=== PATIENT | male | born 1980 | race Caucasian/White ===

== ENCOUNTER 2020-01-22 20:34 | Inpatient (IN) | payer SELFPAY ==
--- NOTE | 2020-01-22 21:35 | PDOC ---
History of Present Illness - General Chief Complaint: Seizure Stated Complaint: SEIZURE - History of Present Illness Initial Comments: 01/22/20 21:28 39yo male with no reported PMH BIBEMS after a witnessed seizure at work complaining of posterior headache, chest pain radiating to the back and arms, nausea, lightheadedness, and SOB. Patient states he lost consciousness at work four years ago and he was taken to the [facility] ER, but he doesn't know what happened there or what he was diagnosed with. He states he was at work when he suddenly lost consciousness. He woke up on the floor with blood on his mask. Since then, he has had pain at the back of his head, stabbing substernal chest pain radiating to the back and to both arms, nausea, lightheadedness. Denies vomiting. Not on blood thinners. Patient states he was not eating or drinking much while at work. He reports occasional alcohol use, last drink one week prior. A co-worker was contacted. He states that he heard pans crash on the floor, so he went over and saw the patient having total-body convulsions on the floor for 2-3 minutes. Afterwards the patient was confused, looked dazed, and was not making good eye contact. [facility] ER was contacted, and according to a physician there, the patient was admitted with a story more concerning for syncope than seizure, and there was no outpatient follow up. PMH/PSH: as above Meds/Allergies: none ROS GENERAL/CONSTITUTIONAL: No fever or chills. HEAD, EYES, EARS, NOSE AND THROAT: No change in vision. No ear pain or discharge. No sore throat. CARDIOVASCULAR: chest pain and shortness of breath RESPIRATORY: No cough, wheezing, or hemoptysis. GASTROINTESTINAL: nausea, no vomiting, diarrhea or constipation. GENITOURINARY: No dysuria, frequency, or change in urination. MUSCULOSKELETAL: back pain. no extremity pain SKIN: No rash NEUROLOGIC: headache and lightheadedness ENDOCRINE: No increased thirst. No abnormal weight change HEMATOLOGIC/LYMPHATIC: No anemia, easy bleeding, or history of blood clots. ALLERGIC/IMMUNOLOGIC: No hives or skin allergy. PE GENERAL: Awake, alert, and fully oriented, in no acute distress, tremulous HEAD: No signs of trauma, normocephalic, atraumatic EYES: PERRLA, EOMI, sclera anicteric, conjunctiva clear ENT: Auricles normal inspection, hearing grossly normal, nares patent, oropharynx clear without exudates. Moist mucosa. small laceration on left lateral tongue NECK: Normal ROM, supple, no lymphadenopathy, JVD, or masses LUNGS: No distress, speaks full sentences, clear to auscultation bilaterally HEART: Regular tachycardia, normal S1 and S2, no murmurs, rubs or gallops, peripheral pulses normal and equal bilaterally. ABDOMEN: Soft, nontender, normoactive bowel sounds. No guarding, no rebound. No masses EXTREMITIES : Normal inspection, Normal range of motion, no edema. No clubbing or cyanosis. NEUROLOGICAL: Cranial nerves II through XII grossly intact. Normal speech, no f ocal sensorimotor deficits. tongue fasciculations and hand tremors SKIN: Warm, Dry, normal turgor, no rashes or lesions noted Vital Signs Temp Pulse Resp BP Pulse Ox 99.5 F 107 H 18 125/85 99 01/22/20 20:38 01/22/20 20:38 01/22/20 20:38 01/22/20 20:38 01/22/20 20:38 BP R arm: 125/85 BP L arm: 147/92 MDM: 39yo male with remote history of seizure vs. syncope with no subsequent outpatient follow up presents after a witness seizure at work. Now complaining of posterior headache and stabbing chest pain radiating to the back. He states he awoke from the incident with these symptoms, but sequence of events and causality could be in the other direction. Differential includes seizure, syncope, ACS, aortic dissection, PE, ICH. -EKG -CT head and c-spine w/o contrast -CT C/A/P with contrast -CBC, CMP, coags, cardiac enzymes, lipase, TSH, mg, phos, prolactin 01/22/20 22:[address] Naik consulted -- recommended loading with Keppra 1000mg, continuing with Keppra 1000mg BID, and getting an MRI and EMG tomorrow. 01/22/20 22:54 EKG: Sinus tachycardia, rate 106, normal axis and intervals, no ischemic changes CT head/s-spine CT C/A/P Labs: CBC: 105 platelets, neutrophil 89.3%, lymphocytes 4.3% CMP: Na 132, K 3.0, Cl 96, BUN 3.8, total bili 1.2, AST 100 Normal cardiac enzymes, TSH -given 40meq KCl IV 01/23/20 00:24 Signed out to night team Past History - Medical History Allergies/Adverse Reactions: Allergies Allergy/AdvReac Type Severity Reaction Status Date / Time No Known Allergies Allergy Verified 08/09/19 14:00 Home Medications: Ambulatory Orders Fluticasone Propionate [Flonase Allergy Relief] 2 sprays NS DAILY #1 bottle 08/09/19 COPD: No - Psycho-Social/Smoking History Smoking History: Unknown if ever smoked - Substance Abuse Hx (Audit-C & DAST Scrn) How often the patient has a drink containing alcohol: Monthly or less Score: In Men: 4 or > Positive; In Women: 3 or > Positive: 1 Screen Result (Pos requires Nsg. Audit-10AR): Negative *Physical Exam - Vital Signs Last Vital Signs Temp Pulse Resp BP Pulse Ox 99.5 F 107 H 18 125/85 99 01/22/20 20:38 01/22/20 20:38 01/22/20 20:38 01/22/20 20:38 01/22/20 20:38 ED Treatment Course - LABORATORY CBC & Chemistry Diagram: 01/22/20 21:15 01/22/20 21:15 Discharge - Discharge Information Problems reviewed: Yes Clinical Impression/Diagnosis: Syncope, Seizure-like activity - Follow up/Referral - Patient Discharge Instructions - Post Discharge Activity
[2020-01-22 21:44] LABS: BASO % 0.3 % (0-2.0); HEMATOCRIT 39.9 % (35.4-49); HEMOGLOBIN 13.9 GM/dL (11.7-16.9); LYMPH % 4.3 % (8-40); MCH 33.4 pg (25.7-33.7); MCHC 34.8 g/dl (32.0-35.9); MEAN CELL VOLUME 95.9 fl (80-96); MEAN PLT VOLUME 9.6 fl (7.5-11.1); MONO % 6.1 % (3.8-10.2); NEUT % 89.3 % (42.8-82.8); PLATELET COUNT 105 K/MM3 (134-434); RBC 4.16 M/mm3 (4.00-5.60); RDW 13.8 % (11.9-15.9); WHITE BLOOD COUNT 6.3 K/mm3 (4.0-10.0)
[2020-01-22 21:52] LABS: INR 1.06 (0.83-1.09); PROTHROMBIN TIME (PATIENT) 12.5 SEC (9.7-13.0)
[2020-01-22 21:54] LABS: ACTIVATED PTT 27.4 SECONDS (25.2-36.5)
[2020-01-22 22:20] LABS: ALBUMIN 3.9 g/dl (3.4-5.0); ALK PHOS 91 U/L (45-117); ANION GAP 11 MMOL/L (8-16); BILIRUBIN,TOTAL 1.2 mg/dL (0.2-1); BLOOD UREA NITROGEN 3.8 mg/dL (7-18); CALCIUM 8.5 mg/dL (8.5-10.1); CHLORIDE 96 mmol/L (98-107); CO2 26 mmol/L (21-32); CREATININE 0.8 mg/dL (0.55-1.3); GLUCOSE,RANDOM 123 mg/dL (74-106); LIPASE 77 U/L (73-393); SGOT/AST 100 U/L (15-37); SODIUM 132 mmol/L (136-145); TOT PROT 7.4 g/dl (6.4-8.2)
[2020-01-22] MEDS ORDERED: POTASSIUM CHLORIDE TABS 20 MEQ TABLET.ER (FP) PO ONE (22:35)
[2020-01-22] MEDS ORDERED: SODIUM CHLORIDE 0.9% 500 ML INFUS.BAG IV ONE (22:36)
[2020-01-22] MEDS ORDERED: KCL 10 MEQ IVPB 10 MEQ/100 ML INFUS.BAG IVPB ONE (22:39)
[2020-01-22] MEDS ORDERED: KCL 10 MEQ IVPB 10 MEQ/100 ML INFUS.BAG IVPB SCH (22:45)
[2020-01-22] MEDS ORDERED: levETIRAcetam 500 MG/5 ML INJECTION VIAL IVPB ONE (22:48)
--- NOTE | 2020-01-22 22:48 | PDOC ---
Attending Attestation - Resident Resident Name: Toni Shah - ED Attending Attestation I have performed the following: I have examined & evaluated the patient, The case was reviewed & discussed with the resident, I agree w/resident's findings & plan - HPI HPI: 01/22/20 22:45 see resident hpi - Physicial Exam PE: 01/22/20 22:45 see resident exam - Medical Decision Making 01/22/20 22:45 39-year-old male status post 1 next syncopal episode with possible seizure activity while at work Now complaining of chest pain radiating to the back CT scan of the head cervical spine and CTA of the chest abdomen pelvis performed with no significant acute abnormality Mental status at baseline in the emergency department, patient has some gait unsteadiness Neurology consult We will admit to telemetry for further evaluation Discharge - Discharge Information Problems reviewed: Yes Clinical Impression/Diagnosis: Syncope, Seizure-like activity - Follow up/Referral - Patient Discharge Instructions - Post Discharge Activity
[2020-01-22 22:52] LABS: PHOSPHOROUS 1.2 mg/dL (2.5-4.9); SGPT/ALT 84 U/L (13-61)
[2020-01-23] MEDS ORDERED: levETIRAcetam 500 MG/5 ML INJECTION VIAL IVPB ONE (00:01)
--- NOTE | 2020-01-23 00:11 | PN ---
Teaching Attending Note Name of Resident: Hattie Burr ATTENDING PHYSICIAN STATEMENT I saw and evaluated the patient. I reviewed the resident's note and discussed the case with the resident. I agree with the resident's findings and plan as documented. SUBJECTIVE: Patient is a 39 year old man with no reported PMH brought in by EMS after a witnessed seizure at work. Patient is complaining of posterior headache, chest pain radiating to the back and arms, nausea, lightheadedness and SOB. Patient states he lost consciousness at work four years ago and he was taken to the [facility] ER, but he doesn't know what happened there or what he was diagnosed with. He states he was at work when he suddenly lost consciousness. He woke up on the floor with blood on his mask. Since then, he has had pain at the back of his head, stabbing substernal chest pain radiating to the back and to both arms, nausea, lightheadedness. Denies vomiting. Not on blood thinners. Patient states he was not eating or drinking much while at work. He reports occasional alcohol use, last drink one week prior. A co-worker was contacted. He states that he heard pans crash on the floor, so he went over and saw the patient having total-body convulsions on the floor for 2-3 minutes. Afterwards the patient was confused, looked dazed, and was not making good eye contact. [facility] ER was contacted, and according to a physician there, the patient was admitted with a story more concerning for syncope than seizure, and there was no outpatient follow up. Patient denies abdominal pain, fever, chills, diarrhea, constipation, dysuria, frequency, urgency, melena, hematochezia or hematuria. Works in a restaurant. Gave differing versions of his alcohol use history to different clinicians. Denies tobacco or illicit drug use. No sick contacts or recent travels. Family history migraine headache in mother. OBJECTIVE: Alert and restless Vital Signs Period Temp Pulse Resp BP Sys/Vo Pulse Ox Last 24 Hr 99.5 F 107 18 125-125/85-85 99-99 HEENT: No Jaundice, eye redness or discharge, PERRLA, EOMI. Normocephalic, atraumatic. Left side tongue laceration. External ears are normal and hearing is grossly intact. No nasal discharge. Neck: Supple, nontender. No palpable adenopathy or thyromegaly. No JVD Chest: Good effort. Clear to auscultation and percussion. Heart: Regular. No S3, rub or murmur Abdomen: Not distended, soft, nontender and no HSM. No rebound or guarding. Normal bowel sounds. Ext: Peripheral pulses intact. No leg edema. Skin: Warm and dry. No petechiae, rash or ecchymosis. Neuro: Alert. Oriented x3. Tongue fasciculations; hand tremors; no asterexis. CN 2-12 grossly intact. Sensation grossly intact in all four extremities and DTR are symmetric. Gait not tested for safety reasons. Psych: Appropriate mood and affect. Good insight. Home Medications Medication Instructions Recorded Fluticasone Propionate [Flonase 2 sprays NS DAILY #1 bottle 08/09/19 Allergy Relief] Abnormal Lab Results 01/22/20 01/22/20 21:15 21:15 Plt Count 105 L Neutrophils % 89.3 H Lymphocytes % 4.3 L Sodium 132 L Potassium 3.0 L Chloride 96 L BUN 3.8 L Random Glucose 123 H Phosphorus 1.2 L Total Bilirubin 1.2 H AST 100 H ALT 84 H Current Medications Generic Name Dose Route Start Last Admin Trade Name Freq PRN Reason Stop Dose Admin Enoxaparin Sodium 40 mg 01/23/20 10:00 Lovenox - SQ DAILY MADAY Sodium Chloride 1,000 mls @ 75 mls/hr 01/23/20 02:00 01/23/20 02:06 Normal Saline - IV 01/24/20 15:19 75 mls/hr ASDIR MADAY Administration Lorazepam 1 mg 01/24/20 05:00 Ativan - PO 01/24/20 23:01 0500,1100,1700,2300 MADAY Lorazepam 1 mg 01/23/20 01:43 Ativan - PO 01/25/20 00:00 Q4H PRN Symptoms of Withdrawal Lorazepam 2 mg 01/23/20 05:00 Ativan - PO 01/23/20 23:01 0500,1100,1700,2300 MADAY Lorazepam 0.5 mg 01/25/20 05:00 Ativan - PO 01/25/20 23:01 Q6H MADAY Lorazepam 0.5 mg 01/25/20 00:00 Ativan - PO 01/26/20 00:00 Q4H PRN Symptoms of Withdrawal Lorazepam 0.5 mg 01/26/20 05:00 Ativan - PO 01/26/20 05:01 ONCE ONE Potassium Phos/Sodium Phos 1 packet 01/23/20 03:40 Phos-Nak Packet - PO 01/23/20 03:41 ONCE ONE ASSESSMENT AND PLAN: 1. Seizures/Syncope - Possible alcohol withdrawal seizure. No evidence of acute intracranial pathology on noncontrast head CT scan. C-spine CT did not show any fracture or subluxation. CTA of chest/abdomen/pelvis does not show any thoracoabdominal aortic dissection, but shows diffuse hepatic steatosis, RUL pulmonary granuloma and bilateral L5 spondylosis. ER staff discussed patient [facility] Neurologist who recommended Keppra 1 gm IV start and then 500 mg q 12 hours, brain MRI and EEG. Viral testing for COVID-19 ordered and patient placed on airborne, droplet and contact isolation. EKG shows sinus tachycardia at 106/minute and QTc [address]-T wave changes. No old EKG available for comparison. Initial troponin is negative. Will avoid drugs that may prolong QTc. Will admit to telemetry, get ECHO, carotid doppler, urinalysis, urine toxicology, fasting lipids, brain MRI and do speech and swallow evaluation. Consult PT. 2. Alcohol withdrawal syndrome Despite his denial, he has clinical and laboratory features consistent with heavy alcohol use. Will monitor low platelets, get hepatitis serology, urine toxicology, NH3 level, trend LFTs, give IV KCL, PO potassium phosphate and Neutraphos and avoid hepatotoxic agents. Hyponatremia likely partly due to hyperglycemia and ?alcoholism. Will limit free water intake and correct hyperglycemia. Will admit to telemetry, implement CIWA Ativan alcohol withdrawal protocol and do neurochecks. Implement seizure, fall and aspiration precautions. Treat with IV Banana bag, thiamine and folic acid. Monitor and replete electrolytes (Ca,Mg,K,P). Counseled patient about abstaining from alcohol. Will consult victims advocate clerk/specialist and refer to alcohol detox upon discharge. 3. DVT prophylaxis - Lovenox 40 mg SQ q 24 hours. 4. Advance directives - Full code
[2020-01-23] MEDS: KCL 10 MEQ IVPB 10 MEQ/100 ML INFUS.BAG IVPB SCH ×4 (00:38→02:57)
[2020-01-23] MEDS ORDERED: NAPH,MB-DB/K PH,MBDB POWDER PACKET PO ONE ×2 (01:39→03:40)
[2020-01-23] MEDS ORDERED: THIAMINE HCL 200 MG/2 ML VIAL IVPB ONE (01:41)
[2020-01-23] MEDS ORDERED: FOLIC ACID 1 MG TABLET (FP) PO ONE (01:42)
[2020-01-23] MEDS ORDERED: LORazepam 0.5 MG TABLET PO PRN (01:43)
[2020-01-23] MEDS: SODIUM CHLORIDE 1,000 ML IV SCH (02:06)
[2020-01-23 02:29] LABS: PH,URINE 7.5 (5.0-8.0); URINE APPEARANCE CLEAR; URINE BILIRUBIN NEGATIVE (NEGATIVE); URINE COLOR YELLOW; URINE GLUCOSE (UA) NEGATIVE (NEGATIVE); URINE KETONE NEGATIVE (NEGATIVE); URINE LEUK ESTERASE NEGATIVE (NEGATIVE); URINE NITRITE NEGATIVE (NEGATIVE); URINE PROTEIN NEGATIVE (NEGATIVE)
[2020-01-23 02:36] LABS: COCAINE, UR NEGATIVE ng/ml (CUTOFF=300); OPIATES, URI NEGATIVE ng/ml (CUTOFF=300); PHENCYCLIDINE,URINE NEGATIVE ng/ml (CUTOFF=25); URINE BARBITURATES NEGATIVE ng/ml (CUTOFF=200); URINE BENZODIAZEPINES NEGATIVE ng/ml (CUTOFF=200)
[2020-01-23] MEDS ORDERED: KCL 10 MEQ IVPB 10 MEQ/100 ML INFUS.BAG IVPB ONE (02:36)
[2020-01-23 02:41] LABS: METHADONE, UR NEGATIVE ng/ml (CUTOFF=300); URINE AMPHETAMINES NEGATIVE ng/ml (CUTOFF=500)
[2020-01-23] MEDS ORDERED: LORazepam 2 MG/ML SDV VIAL ONE (05:08)
[2020-01-23] MEDS ORDERED: NAPH,MB-DB/K PH,MBDB POWDER PACKET ONE (05:09)
[2020-01-23] MEDS ORDERED: LORazepam 0.5 MG TABLET ONE ×3 (05:12→16:57)
[2020-01-23] MEDS: LORazepam 0.5 MG TABLET PO SCH ×4 (05:13→22:27)
--- NOTE | 2020-01-23 05:33 | HP ---
CHIEF COMPLAINT: seizure-like episode PCP: none (patient appears to be uninsured) HISTORY OF PRESENT ILLNESS: 39yo M with no PMHx was brought in by EMS due to a seizure-like episode. Patient is Maltese speaking - information was gathered with heavy duty mechanic farm equipment matilda [id number]. 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 His boss found the patient on the floor and witnessed convulsions. Patient bit his tongue during the event and endorsed pain in his jaw and neck area. Patient also endorsed stabbing CP that radiates to his back. The patient experienced a similar episode ~4 years ago where he was worked up at [facility] and where the episode was thought to me rather of syncopal nature - this is per ED resident that called the hospital. Per patient, he thinks that he was diagnosed with a seizure disorder but was never given any mediations and has never seen a neurologist. Patient also endorsed nausea and a strong headache located more towards the bilateral frontal head regions. Denied any changes in vision, dysuria, urinary frequency, fevers, chills, vomiting, diarrhea, or constipation. ER course was notable for: (1) Plts 105, Na 132, K 3.0, Phos 1.2 (2) LFTs: total bili 1.2, AST 100, ALT 84, AlkPhos 91 (3) CK, CK-MB, trop, d-dimer, lipase, TSH, quantit alcohol - all unremarkable (4) EKG: sinus tachycardia, QTc 475 (5) cervical spine CT and head CT unremarkable (6) chest/thorax and abdomen/pelvis CTA: neg thoracoabdominal aortic dissection. Small calcified Right upper lobe pulmonary granuloma. Probable diffuse hepatic steatosis. Bilateral L5 spondylolysis (7) received NS 1L, KCl 10mEq IVPB x4, keppra 1000mg Recent Travel: did not assess PAST MEDICAL HISTORY: none PAST SURGICAL HISTORY: none Family History: mother had chronic headaches Social History: Smoking: denied Alcohol: endorsed 1-6 beers about 4 days ago, occasionally drinks 6 beers in one sitting, but does not drink this every day Drugs: denied Work: restaurant Home: lives with Allergies No Known Allergies Allergy (Verified 08/09/19 14:00) HOME MEDICATIONS: Home Medications Medication Instructions Recorded Fluticasone Propionate [Flonase 2 sprays NS DAILY #1 bottle 08/09/19 Allergy Relief] REVIEW OF SYSTEMS as per above PHYSICAL EXAMINATION Vital Signs - 24 hr 01/22/20 01/23/20 20:38 02:20 Temperature 99.5 F Pulse Rate 107 H Pulse Rate [ 73 Left] Respiratory 18 18 Rate Blood Pressure 125/85 Blood Pressure 125/81 [Left Arm] O2 Sat by Pulse 99 97 Oximetry (%) GENERAL: M, appears stated age, awake and interactive, fully oriented, appears to be in mild distress HEAD: Normal with no signs of trauma, difficulties opening mouth due to bilateral jaw pain, L tongue laceration EYES: PERRL, direct and consensual pupillary reflexes intact, extraocular move ments intact NECK: Normal range of motion with movement causing mild tenderness, no lymphadenopathy appreciated LUNGS: CTAB, no wheezing appreciated HEART: Regular rate and rhythm, normal S1 and S2 without murmurs ABDOMEN: Soft, nontender, not distended, hypoactive bowel sounds EXTREMITIES: 2+ radial and dorsalis pedis pulses, warm to touch, no peripheral edema noted, full strenght bilaterally, sensation intact NEUROLOGICAL: Cranial nerves II-XII grossly intact with normal speech and symmetrical facial movements, no visual field or auditory deficits PSYCHIATRIC: Cooperative, interactive. Responds appropriately, good eye contact, nervous mood and affect congruent with stated mood SKIN: no rashes or lesions noted including scalp inspection Laboratory Results - last 24 hr 01/22/20 01/22/20 01/22/20 21:15 21:15 21:15 WBC 6.3 RBC 4.16 Hgb 13.9 Hct 39.9 MCV 95.9 MCH 33.4 MCHC 34.8 RDW 13.8 Plt Count 105 L MPV 9.6 Absolute Neuts (auto) 5.6 Neutrophils % 89.3 H Lymphocytes % 4.3 L Monocytes % 6.1 Eosinophils % 0.0 Basophils % 0.3 Nucleated RBC % 0 PT with INR 12.50 INR 1.06 PTT (Actin FS) 27.4 D-Dimer Sodium 132 L Potassium 3.0 L Chloride 96 L Carbon Dioxide 26 Anion Gap 11 BUN 3.8 L Creatinine 0.8 Est GFR (CKD-EPI)AfAm 130.42 Est GFR (CKD-EPI)NonAf 112.53 Random Glucose 123 H Calcium 8.5 Phosphorus 1.2 L Magnesium 2.0 Total Bilirubin 1.2 H AST 100 H ALT 84 H Alkaline Phosphatase 91 Creatine Kinase 239 Creatine Kinase Index 1.1 CK-MB (CK-2) 2.7 Troponin I < 0.02 Total Protein 7.4 Albumin 3.9 Lipase 77 TSH 0.80 Urine Color Urine Appearance Urine pH Ur Specific [place] Urine Protein Urine Glucose (UA) Urine Ketones Urine Blood Urine Nitrite Urine Bilirubin Urine Urobilinogen Ur Leukocyte Esterase Opiates Screen Methadone Screen Barbiturate Screen Phencyclidine Screen Ur Amphetamines Screen MDMA (Ecstasy) Screen Benzodiazepines Screen Cocaine Screen U Marijuana (THC) Screen Alcohol, Quantitative < 3 01/22/20 01/23/20 01/23/20 21:15 02:19 02:19 WBC RBC Hgb Hct MCV MCH MCHC RDW Plt Count MPV Absolute Neuts (auto) Neutrophils % Lymphocytes % Monocytes % Eosinophils % Basophils % Nucleated RBC % PT with INR INR PTT (Actin FS) D-Dimer 322 Sodium Potassium Chloride Carbon Dioxide Anion Gap BUN Creatinine Est GFR (CKD-EPI)AfAm Est GFR (CKD-EPI)NonAf Random Glucose Calcium Phosphorus Magnesium Total Bilirubin AST ALT Alkaline Phosphatase Creatine Kinase Creatine Kinase Index CK-MB (CK-2) Troponin I Total Protein Albumin Lipase TSH Urine Color Yellow Urine Appearance Clear Urine pH 7.5 Ur Specific [place] 1.035 Urine Protein Negative Urine Glucose (UA) Negative Urine Ketones Negative Urine Blood Negative Urine Nitrite Negative Urine Bilirubin Negative Urine Urobilinogen 1.0 Ur Leukocyte Esterase Negative Opiates Screen Negative Methadone Screen Negative Barbiturate Screen Negative Phencyclidine Screen Negative Ur Amphetamines Screen Negative MDMA (Ecstasy) Screen Negative Benzodiazepines Screen Negative Cocaine Screen Negative U Marijuana (THC) Screen Negative Alcohol, Quantitative ASSESSMENT/PLAN: 39yo M with no PMHx was brought in by EMS due to a seizure-like episode. Initial labs were remarkable for Plts 105, Na 132, K 3.0, Phos 1.2, total bili 1.2, AST 100, ALT 84, AlkPhos 91, and physical exam showed a patient in mild distress, agitated, and with a mild tremor that worsens with movement. Patient was admitted for seizure-like episode likely due to alcohol withdrawal vs. less likely seizure disorder vs. less likely syncope (aortic dissection on PE have been ruled out). #seizure-like episode - likely due to alcohol withdrawal given labs and changing patient history in regards to alcohol consumption - UA and urine tox screen ordered - alcohol withdrawal protocol with ativan (avoid librium due to increased LFTs) - administered thiamine and folate - ordered hepatitis serology - trend LFTs - ammonia levels ordered - hydration with IVFs - avoid QTc prolonging drugs - in case of undiagnosed seizure disorder: *neuro consulted - loaded with 1g keppra and recommended keppra 1g BID with MRI and EEG in the am *seizure and fall precautions ordered #PPX - DVT: lovenox #FEN - 75cc/h NS - replete lytes PRN - hyponatremia, hypokalemia, hypophosphatemia - NPO for now (PO meds ok) #Dispo - continue monitoring in telemetry. bilingual branch manager may help patient gain access to health insurance Family Medical History Family History: As Documented Visit type - Emergency Visit Emergency Visit: Yes ED Registration Date: 01/22/20 Care time: The patient presented to the Emergency Department on the above date and was hospitalized for further evaluation of their emergent condition. - New Patient This patient is new to me today: Yes Date on this admission: 01/23/20 - Critical Care Critical Care patient: No ATTENDING PHYSICIAN STATEMENT I saw and evaluated the patient. I reviewed the resident's note and discussed the case with the resident. I agree with the resident's findings and plan as documented. SUBJECTIVE: OBJECTIVE: ASSESSMENT AND PLAN:
[2020-01-23 06:03] LABS: BASO % 0.4 % (0-2.0); EOS % 0.6 % (0-4.5); HEMATOCRIT 38.9 % (35.4-49); HEMOGLOBIN 13.5 GM/dL (11.7-16.9); LYMPH % 14.8 % (8-40); MCH 33.3 pg (25.7-33.7); MCHC 34.7 g/dl (32.0-35.9); MEAN CELL VOLUME 95.7 fl (80-96); MONO % 7.2 % (3.8-10.2); PLATELET COUNT 96 K/MM3 (134-434); RBC 4.06 M/mm3 (4.00-5.60); RDW 13.6 % (11.9-15.9); WHITE BLOOD COUNT 5.1 K/mm3 (4.0-10.0)
[2020-01-23 06:28] LABS: ALBUMIN 3.4 g/dl (3.4-5.0); BILIRUBIN,TOTAL 1.6 mg/dL (0.2-1); BLOOD UREA NITROGEN 3.5 mg/dL (7-18); CALCIUM 7.9 mg/dL (8.5-10.1); CREATININE 0.5 mg/dL (0.55-1.3); MAGNESIUM 2.3 mg/dL (1.8-2.4); PHOSPHOROUS 2.6 mg/dL (2.5-4.9); POTASSIUM 3.2 mmol/L (3.5-5.1); TOT PROT 6.6 g/dl (6.4-8.2)
--- NOTE | 2020-01-23 11:30 | HOSP ---
Subjective - Review of Symptoms HEENT: Yes: Other (jaw/toungue pain) Cardiovascular: Yes: Chest Pain (resolved) Neurological: Yes: Seizures Physical Examination Vital Signs: Vital Signs Temperature 98.5 F 01/23/20 09:05 Pulse Rate 87 01/23/20 09:05 Respiratory Rate 18 01/23/20 09:05 Blood Pressure 117/84 01/23/20 09:05 O2 Sat by Pulse Oximetry (%) 96 01/23/20 09:05 Constitutional: Yes: Well Nourished, Anxious Eyes: Yes: WNL, Conjunctiva Clear, EOM Intact HENT: Yes: Normocephalic, Other (left tounge laceration, BL jaw pain) Neck: Yes: WNL, Supple, Trachea Midline Cardiovascular: Yes: WNL, Regular Rate and Rhythm Respiratory: Yes: WNL, Regular, CTA Bilaterally Gastrointestinal: Yes: WNL, Normal Bowel Sounds ...Rectal Exam: Yes: Deferred Renal/: Yes: WNL Breast(s): Yes: WNL Musculoskeletal: Yes: WNL Extremities: Yes: WNL Edema: No Peripheral Pulses WNL: Yes Peripheral Pulses: Left Radial: 2+, Right Radial: 2+, Left Doralis Pedis: 2+, Right Dorsalis Pedis: 2+, Left Femoral: 2+, Right Femoral: 2+ Integumentary: Yes: WNL Neurological: Yes: WNL, Alert, Oriented ...Motor Strength: WNL Psychiatric: Yes: WNL Labs: CBC, BMP 01/23/20 05:44 01/23/20 05:44 Hospitalist Encounter Assessment: 39yo M with no PMHx was brought in by EMS due to a seizure-like episode. #seizure-like activity - possibly r/t due to alcohol withdrawal given labs and changing patient history in regards to alcohol consumption -c/w alcohol withdrawal protocol with ativan (avoid librium due to increased LFTs) - c/w thiamine and folate - hepatitis serologies pending - trend LFTs - ammonia level 49-if becomes confused can start lactulose -seen by neuro and keppra loaded-c/w 500mg bid -EEG pending -MRI brain pending -mainatin sz precautions #PPX - DVT: lovenox #FEN - 75cc/h NS - replete lytes PRN - hyponatremia, hypokalemia, hypophosphatemia - low protein diet #Dispo - -admit to med surg -full code-discharge planning to home Full note to follow tomorrow
[2020-01-23] MEDS: ENOXAPARIN NA (PORCINE) 40 MG/0.4 ML DISP.SYRIN SQ SCH (12:17)
--- NOTE | 2020-01-23 12:36 | EKG ---
Test Reason : Blood Pressure : / mmHG Vent. Rate : 106 BPM Atrial Rate : 106 BPM P-R Int : 184 ms QRS Dur : 098 ms QT Int : 358 ms P-R-T Axes : 049 004 002 degrees QTc Int : 475 ms SINUS TACHYCARDIA OTHERWISE NORMAL ECG NO PREVIOUS ECGS AVAILABLE Confirmed by ELIECER ROBLERO MD ([id number]) on 01/23/2020 12:36:13 PM Referred By: Confirmed By:ELIECER ROBLERO MD
--- NOTE | 2020-01-23 12:38 | CON.NEURO ---
Consult - Alcohol/Substance Use Hx Alcohol Use: No - Smoking History Smoking history: Unknown if ever smoked Home Medications - Allergies Allergies/Adverse Reactions: Allergies Allergy/AdvReac Type Severity Reaction Status Date / Time No Known Allergies Allergy Verified 08/09/19 14:00 - Home Medications Home Medications: Ambulatory Orders Fluticasone Propionate [Flonase Allergy Relief] 2 sprays NS DAILY #1 bottle 08/09/19 Physical Exam-Neuro Vital Signs: Vital Signs Temperature 97.6 F 01/23/20 11:56 Pulse Rate 97 H 01/23/20 11:56 Respiratory Rate 18 01/23/20 11:56 Blood Pressure 116/87 01/23/20 11:56 O2 Sat by Pulse Oximetry (%) 97 01/23/20 11:56 Labs: CBC, BMP 01/23/20 05:44 01/23/20 05:44 INR, PTT INR 1.06 (0.83-1.09) 01/22/20 21:15 Assessment/Plan cc Second epiosde of seizure HPI 39 year old male no significant medical history. 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 He bit his tongue and his jaw and neck was jerking. He has similar episode four years ago and was not started on medication. Patient is still having headhace and feeling lethargic, His ct head is normal. Patient has been afebrile. He is from [place], denies any epilepsy in his family. 39yo M with no PMHx was brought in by EMS due to a seizure-like episode. Patient is Irish speaking - information was gathered with geriatric psychiatrist Coiney [id number]. 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 His boss found the patient on the floor and witnessed convulsions. P atient bit his tongue during the event and endorsed pain in his jaw and neck area. Patient also endorsed stabbing CP that radiates to his back. The patient experienced a similar episode ~4 years ago where he was worked up at [facility] and where the episode was thought to me rather of syncopal nature - this is per ED resident that called the hospital. Per patient, he thinks that he was diagnosed with a seizure disorder but was never given any mediations and has never seen a neurologist. Patient also endorsed nausea and a strong headache located more towards the bilateral frontal head regions. Denied any changes in vision, dysuria, urinary frequency, fevers, chills, vomiting, diarrhea, or constipation. ER course was notable for: (1) Plts 105, Na 132, K 3.0, Phos 1.2 (2) LFTs: total bili 1.2, AST 100, ALT 84, AlkPhos 91 (3) CK, CK-MB, trop, d-dimer, lipase, TSH, quantit alcohol - all unremarkable (4) EKG: sinus tachycardia, QTc 475 (5) cervical spine CT and head CT unremarkable (6) chest/thorax and abdomen/pelvis CTA: neg thoracoabdominal aortic dissection. Small calcified Right upper lobe pulmonary granuloma. Probable diffuse hepatic steatosis. Bilateral L5 spondylolysis (7) received NS 1L, KCl 10mEq IVPB x4, keppra 1000mg Recent Travel: did not assess PAST MEDICAL HISTORY: none PAST SURGICAL HISTORY: none Family History: mother had chronic headaches Social History: Smoking: denied Alcohol: endorsed 1-6 beers about 4 days ago, occasionally drinks 6 beers in one sitting, but does not drink this every day Drugs: denied Work: restaurant Home: lives with Allergies No Known Allergies Allergy (Verified 08/09/19 14:00) HOME MEDICATIONS: Home Medications Medication Instructions Recorded Fluticasone Propionate [Flonase 2 sprays NS DAILY #1 bottle 08/09/19 Allergy Relief] Ros,FH,SH reviewed in chart NEUROLOGICAL EXAMINATION Alert oriented x 3, afebrile neck is supple vss eomi, pupils reactive face symmetrical moving all ext sensation is normal ct head is normal Assesment/PLAN Unprovoked second episode of seizure with tonic clonic activity and tongue bite.ct head and neuro exam is normal. Plan - mri of brain with and without contrast - eeg - kepra 500 mg po bid - seizure precautiosn, specially driving Thanking you so much Ham Naik MD
[2020-01-23] MEDS ORDERED: levETIRAcetam 500 MG TABLET (FP) PO ONE (14:28)
[2020-01-23] MEDS: levETIRAcetam 500 MG TABLET (FP) PO SCH ×2 (14:31→22:28)
[2020-01-23] MEDS: ACETAMINOPHEN 325 MG TABLET (FP) PO PRN (18:44)
[2020-01-23] MEDS ORDERED: PT OWN MED DRAWER 7, Y5N ONE (19:31)
[2020-01-23 21:45] VITALS: BMI 26.0
[2020-01-24] MEDS: SODIUM CHLORIDE 1,000 ML IV SCH ×2 (00:09→02:31)
[2020-01-24] MEDS: LORazepam 0.5 MG TABLET PO SCH ×4 (05:50→23:32)
[2020-01-24] MEDS: ACETAMINOPHEN 325 MG TABLET (FP) PO PRN ×2 (06:01→12:02)
--- NOTE | 2020-01-24 07:57 | PN ---
Progress Note, Physician Chief Complaint: Seen and examined in bed. Via [place] interpretor-pt states his abdominal pain is resolved. Headache remains.EEG done today-not resulted. Ativan detox in progress History of Present Illness: 39yo M with no PMHx was brought in by EMS due to a seizure-like episode. - Current Medication List Current Medications: Active Medications Acetaminophen (Tylenol -) 650 mg PO Q6H PRN PRN Reason: PAIN LEVEL 1-5 Last Admin: 01/24/20 06:01 Dose: 650 mg Documented by: Enoxaparin Sodium (Lovenox -) 40 mg SQ DAILY [facility] Last Admin: 01/23/20 12:17 Dose: Not Given Documented by: Folic Acid (Folic Acid -) 1 mg PO DAILY [facility] Sodium Chloride (Normal Saline -) 1,000 mls @ 75 mls/hr IV ASDIR [facility] Stop: 01/24/20 15:19 Last Admin: 01/24/20 02:31 Dose: Not Given Documented by: Levetiracetam (Keppra -) 500 mg PO BID [facility] Last Admin: 01/23/20 22:28 Dose: 500 mg Documented by: Lorazepam (Ativan -) 1 mg PO 0500,1100,1700,2300 [facility] Stop: 01/24/20 23:01 Last Admin: 01/24/20 05:50 Dose: 1 mg Documented by: Lorazepam (Ativan -) 1 mg PO Q4H PRN PRN Reason: Symptoms of Withdrawal Stop: 01/25/20 00:00 Last Admin: 01/23/20 14:37 Dose: 1 mg Documented by: Lorazepam (Ativan -) 0.5 mg PO Q6H [facility] Stop: 01/25/20 23:01 Lorazepam (Ativan -) 0.5 mg PO Q4H PRN PRN Reason: Symptoms of Withdrawal Stop: 01/26/20 00:00 Lorazepam (Ativan -) 0.5 mg PO ONCE ONE Stop: 01/26/20 05:01 Multivitamins/Minerals/Vitamin C (Tab-A-Vit -) 1 tab PO DAILY [facility] Thiamine HCl (Vitamin B1 -) 100 mg PO DAILY [facility] - Objective Vital Signs: Vital Signs Temperature 98.7 F 01/24/20 06:00 Pulse Rate 91 H 01/24/20 06:00 Respiratory Rate 18 01/24/20 06:00 Blood Pressure 115/76 01/24/20 06:00 O2 Sat by Pulse Oximetry (%) 99 01/24/20 06:00 Additional Findings/Remarks: Constitutional: Yes: Well Nourished, Anxious, restless Eyes: Yes: WNL, Conjunctiva Clear, EOM Intact HENT: Yes: Normocephalic, Other (left tounge laceration, BL jaw pain) Neck: Yes: WNL, Supple, Trachea Midline Cardiovascular: Yes: WNL, Regular Rate and Rhythm Respiratory: Yes: WNL, Regular, CTA Bilaterally Gastrointestinal: Yes: WNL, Normal Bowel Sounds ...Rectal Exam: Yes: Deferred Renal/: Yes: WNL Breast(s): Yes: WNL Musculoskeletal: Yes: WNL Extremities: Yes: WNL. Tremors noted to UE Edema: No Peripheral Pulses WNL: Yes Peripheral Pulses: Left Radial: 2+, Right Radial: 2+, Left Doralis Pedis: 2+, Right Dorsalis Pedis: 2+, Left Femoral: 2+, Right Femoral: 2+ Integumentary: Yes: WNL Neurological: Yes: WNL, Alert, Oriented ...Motor Strength: WNL Psychiatric: Yes: WNL Labs: CBC, BMP 01/23/20 05:44 01/23/20 05:44 INR, PTT INR 1.06 (0.83-1.09) 01/22/20 21:15 - ....Imaging Other: Pending (EEG) Problem List - Problems (1) Prophylactic measure Assessment/Plan: FEN Fluids: PO intake Electrolytes: monitor & replete as needed Nutrition: diet DVT moderate risk sq heparin Dispo Maintain as inpatient full code discharge planning Code(s): Z29.9 - ENCOUNTER FOR PROPHYLACTIC MEASURES, UNSPECIFIED (2) Seizure-like activity Assessment/Plan: no seizaer activity noted overnight keppra loaded c/w keppra bid EEG pending results CI 7 c/w ativan taper neurology following Code(s): R56.9 - UNSPECIFIED CONVULSIONS (3) Alcohol abuse Assessment/Plan: c/w ativan taper c/w thiamine,mvi, folate counseled on cessation declined reheb/detox on discharge Code(s): F10.10 - ALCOHOL ABUSE, UNCOMPLICATED (4) Hypokalemia Assessment/Plan: K 3.2 replete and monitor repeat BMP pending at 4p Code(s): E87.6 - HYPOKALEMIA (5) Transaminitis Assessment/Plan: AST 182, ALT 114 elevated from presumed ETOH use avopid heptotoxic Code(s): R74.0 - NONSPEC ELEV OF LEVELS OF TRANSAMNS & LACTIC ACID DEHYDRGNSE (6) Hyperbilirubinemia Assessment/Plan: TBil 1.2>1.6>2.0>1.2 most likely d/t etoh consumption if does not continue to go down will consult GI in morning Code(s): E80.6 - OTHER DISORDERS OF BILIRUBIN METABOLISM (7) Tongue laceration Assessment/Plan: bit tongue during seizure/fall ice prn Code(s): S01.512A - LACERATION WITHOUT FOREIGN BODY OF ORAL CAVITY, INIT ENCNTR (8) Jaw pain Assessment/Plan: ice pack to jaw prn Code(s): R68.84 - JAW PAIN Visit type - Emergency Visit Emergency Visit: Yes ED Registration Date: 01/22/20 Care time: The patient presented to the Emergency Department on the above date and was hospitalized for further evaluation of their emergent condition. - New Patient This patient is new to me today: No - Critical Care Critical Care patient: No - Discharge Referral Referred to [facility] Med P.C.: No CIWA Score - CIWA Score Nausea/Vomitin-No Nausea/No Vomiting Muscle Tremors: 3 Anxiety: 0-No Anxiety, at Ease Agitation: 0-Normal Activity Paroxysmal Sweats: No Perspiration Orientation: 1-Uncertain about Date Tacttile Disturbances: 0-None Auditory Disturbances: 0-None Visual Disturbances: 0-None Headache: 3-Moderate CIWA-Ar Total Score: 7
[2020-01-24 09:32] LABS: BASO % 0.3 % (0-2.0); EOS % 2.6 % (0-4.5); HEMATOCRIT 43.7 % (35.4-49); HEMOGLOBIN 15.1 GM/dL (11.7-16.9); LYMPH % 14.1 % (8-40); MCH 33.6 pg (25.7-33.7); MCHC 34.6 g/dl (32.0-35.9); MEAN PLT VOLUME 10.1 fl (7.5-11.1); MONO % 5.8 % (3.8-10.2); NEUT % 77.2 % (42.8-82.8); PLATELET COUNT 78 K/MM3 (134-434); RDW 13.1 % (11.9-15.9); WHITE BLOOD COUNT 5.4 K/mm3 (4.0-10.0)
[2020-01-24 09:36] LABS: INR 1.05 (0.83-1.09); PROTHROMBIN TIME (PATIENT) 12.4 SEC (9.7-13.0)
[2020-01-24 10:09] LABS: ALBUMIN 3.7 g/dl (3.4-5.0); BLOOD UREA NITROGEN 6.4 mg/dL (7-18); CALCIUM 8.4 mg/dL (8.5-10.1); CREATININE 0.6 mg/dL (0.55-1.3); MAGNESIUM 2.4 mg/dL (1.8-2.4); POTASSIUM 3.2 mmol/L (3.5-5.1); TOT PROT 7.4 g/dl (6.4-8.2)
[2020-01-24] MEDS: FOLIC ACID 1 MG TABLET (FP) PO SCH (11:55)
[2020-01-24] MEDS: levETIRAcetam 500 MG TABLET (FP) PO SCH ×2 (11:55→21:18)
[2020-01-24] MEDS: ENOXAPARIN NA (PORCINE) 40 MG/0.4 ML DISP.SYRIN SQ SCH (11:56)
[2020-01-24] MEDS: THIAMINE HCL 100 MG TABLET (FP) PO SCH (11:56)
[2020-01-24] MEDS: MULTIVITAMINS (DAILY MVI) TABLET (FP) PO SCH (11:56)
[2020-01-24 16:55] LABS: ALBUMIN 3.7 g/dl (3.4-5.0); BILIRUBIN,TOTAL 1.2 mg/dL (0.2-1); CALCIUM 8.6 mg/dL (8.5-10.1); CREATININE 0.6 mg/dL (0.55-1.3); POTASSIUM 3.2 mmol/L (3.5-5.1); TOT PROT 7.3 g/dl (6.4-8.2)
--- NOTE | 2020-01-24 17:33 | PN ---
Progress Note (short form) - Note Progress Note: cc Second epiosde of seizure HPI 39 year old male no significant medical history. 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 He bit his tongue and his jaw and neck was jerking. He has similar episode four years ago and was not started on medication. Patient is still having headhace and feeling lethargic, His ct head is normal. Patient has been afebrile. -- no side effect, patient has no seizure, mri of brain was unremarkable. Patient is doing better no side effect of medicaiton NEUROLOGICAL EXAMINATION Alert oriented x 3, afebrile neck is supple vss eomi, pupils reactive face symmetrical moving all ext sensation is normal ct head is normal mri of brain is normal eeg is pending Assesment/PLAN Unprovoked second episode of seizure with tonic clonic activity and tongue bite.ct head and neuro exam is normal. Plan - mri of brain with and without contrast normal - eeg pending - continue kepra 500 mg po bid -seizure precautions Thanking you so much Ham Naik MD
[2020-01-24] MEDS: POTASSIUM CHLORIDE TABS 20 MEQ TABLET.ER (FP) PO SCH ×2 (18:04→21:18)
[2020-01-25] MEDS ORDERED: LORazepam 0.5 MG TABLET PO PRN
[2020-01-25] MEDS: LORazepam 0.5 MG TABLET PO SCH ×4 (05:30→22:56)
--- NOTE | 2020-01-25 07:14 | PN ---
Progress Note, Physician Chief Complaint: Seen and examined in bed. Via [place] interpretor-pt states his abdominal pain has resolved. Headache remains but improved. EEG done -not resulted. Neurology following. Ativan detox in progress History of Present Illness: 39yo M with no PMHx was brought in by EMS due to a seizure-like episode. - Current Medication List Current Medications: Active Medications Acetaminophen (Tylenol -) 650 mg PO Q6H PRN PRN Reason: PAIN LEVEL 1-5 Last Admin: 01/24/20 12:02 Dose: 650 mg Documented by: Enoxaparin Sodium (Lovenox -) 40 mg SQ DAILY [facility] Last Admin: 01/24/20 11:56 Dose: 40 mg Documented by: Folic Acid (Folic Acid -) 1 mg PO DAILY [facility] Last Admin: 01/24/20 11:55 Dose: 1 mg Documented by: Levetiracetam (Keppra -) 500 mg PO BID [facility] Last Admin: 01/24/20 21:18 Dose: 500 mg Documented by: Lorazepam (Ativan -) 0.5 mg PO Q6H [facility] Stop: 01/25/20 23:01 Last Admin: 01/25/20 05:30 Dose: 0.5 mg Documented by: Lorazepam (Ativan -) 0.5 mg PO Q4H PRN PRN Reason: Symptoms of Withdrawal Stop: 01/26/20 00:00 Lorazepam (Ativan -) 0.5 mg PO ONCE ONE Stop: 01/26/20 05:01 Multivitamins/Minerals/Vitamin C (Tab-A-Vit -) 1 tab PO DAILY [facility] Last Admin: 01/24/20 11:56 Dose: 1 tab Documented by: Thiamine HCl (Vitamin B1 -) 100 mg PO DAILY [facility] Last Admin: 01/24/20 11:56 Dose: 100 mg Documented by: - Objective Vital Signs: Vital Signs Temperature 98.9 F 01/25/20 02:00 Pulse Rate 96 H 01/25/20 02:00 Respiratory Rate 18 01/25/20 02:00 Blood Pressure 119/72 01/25/20 02:00 O2 Sat by Pulse Oximetry (%) 96 01/25/20 02:00 Additional Findings/Remarks: Constitutional: Yes: Well Nourished, Anxious, restless Eyes: Yes: WNL, Conjunctiva Clear, EOM Intact HENT: Yes: Normocephalic, Other (left tongue laceration, BL jaw pain) Neck: Yes: WNL, Supple, Trachea Midline Cardiovascular: Yes: WNL, Regular Rate and Rhythm Respiratory: Yes: WNL, Regular, CTA Bilaterally Gastrointestinal: Yes: WNL, Normal Bowel Sounds ...Rectal Exam: Yes: Deferred Renal/: Yes: WNL Breast(s): Yes: WNL Musculoskeletal: Yes: WNL Extremities: Yes: WNL. Tremors less Edema: No Peripheral Pulses WNL: Yes Peripheral Pulses: Left Radial: 2+, Right Radial: 2+, Left Doralis Pedis: 2+, Right Dorsalis Pedis: 2+, Left Femoral: 2+, Right Femoral: 2+ Integumentary: Yes: WNL Neurological: Yes: WNL, Alert, Oriented ...Motor Strength: WNL Psychiatric: Yes: WNL Labs: CBC, BMP 01/24/20 08:00 01/24/20 15:30 INR, PTT INR 1.05 (0.83-1.09) 01/24/20 08:00 Problem List - Problems (1) Prophylactic measure Assessment/Plan: FEN Fluids: PO intake Electrolytes: monitor & replete as needed Nutrition: diet DVT moderate risk sq heparin Dispo Maintain as inpatient full code discharge planning Code(s): Z29.9 - ENCOUNTER FOR PROPHYLACTIC MEASURES, UNSPECIFIED (2) Seizure-like activity Assessment/Plan: no seizure activity noted since intial event c/w keppra bid EEG pending results CIWA 5 c/w ativan taper neurology following Code(s): R56.9 - UNSPECIFIED CONVULSIONS (3) Alcohol abuse Assessment/Plan: c/w ativan taper c/w thiamine,mvi, folate counseled on cessation declined reheb/detox on discharge Code(s): F10.10 - ALCOHOL ABUSE, UNCOMPLICATED (4) Hypokalemia Assessment/Plan: K 3.2 yesterday-repleted now 3.8 replete and monitor Code(s): E87.6 - HYPOKALEMIA (5) Transaminitis Assessment/Plan: AST 182, ALT 114 fatty infiltation on imaging elevated from presumed ETOH use avopid heptotoxic Code(s): R74.0 - NONSPEC ELEV OF LEVELS OF TRANSAMNS & LACTIC ACID DEHYDRGNSE (6) Hyperbilirubinemia Assessment/Plan: TBil 1.2>1.6>2.0>1.2 most likely d/t etoh consumption Code(s): E80.6 - OTHER DISORDERS OF BILIRUBIN METABOLISM (7) Tongue laceration Assessment/Plan: bit tongue during seizure/fall ice prn Code(s): S01.512A - LACERATION WITHOUT FOREIGN BODY OF ORAL CAVITY, INIT ENCNTR (8) Jaw pain Assessment/Plan: ice pack to jaw prn Code(s): R68.84 - JAW PAIN Visit type - Emergency Visit Emergency Visit: Yes ED Registration Date: 01/22/20 Care time: The patient presented to the Emergency Department on the above date and was hospitalized for further evaluation of their emergent condition. - New Patient This patient is new to me today: No - Critical Care Critical Care patient: No - Discharge Referral Referred to [facility] Med P.C.: No CIWA Score - CIWA Score Nausea/Vomitin-No Nausea/No Vomiting Muscle Tremors: 2 Anxiety: 0-No Anxiety, at Ease Agitation: 0-Normal Activity Paroxysmal Sweats: No Perspiration Orientation: 1-Uncertain about Date Tacttile Disturbances: 0-None Auditory Disturbances: 0-None Visual Disturbances: 0-None Headache: 2-Mild CIWA-Ar Total Score: 5
[2020-01-25 09:36] LABS: BASO % 0.3 % (0-2.0); EOS % 2.7 % (0-4.5); HEMATOCRIT 45.9 % (35.4-49); HEMOGLOBIN 15.8 GM/dL (11.7-16.9); LYMPH % 13.6 % (8-40); MCH 33.6 pg (25.7-33.7); MCHC 34.4 g/dl (32.0-35.9); MEAN CELL VOLUME 97.5 fl (80-96); MEAN PLT VOLUME 11.2 fl (7.5-11.1); MONO % 6.1 % (3.8-10.2); NEUT % 77.3 % (42.8-82.8); PLATELET COUNT 95 K/MM3 (134-434); RBC 4.71 M/mm3 (4.00-5.60); RDW 13.5 % (11.9-15.9); WHITE BLOOD COUNT 7.7 K/mm3 (4.0-10.0)
[2020-01-25 10:10] LABS: POTASSIUM 3.8 mmol/L (3.5-5.1)
[2020-01-25] MEDS: ACETAMINOPHEN 325 MG TABLET (FP) PO PRN (10:15)
[2020-01-25] MEDS: THIAMINE HCL 100 MG TABLET (FP) PO SCH (10:18)
[2020-01-25] MEDS: levETIRAcetam 500 MG TABLET (FP) PO SCH ×2 (10:18→21:19)
[2020-01-25] MEDS: FOLIC ACID 1 MG TABLET (FP) PO SCH (10:18)
[2020-01-25] MEDS: MULTIVITAMINS (DAILY MVI) TABLET (FP) PO SCH (10:18)
[2020-01-25] MEDS: ENOXAPARIN NA (PORCINE) 40 MG/0.4 ML DISP.SYRIN SQ SCH (10:19)
[2020-01-25 10:22] LABS: BILIRUBIN,TOTAL 1.2 mg/dL (0.2-1); CREATININE 0.6 mg/dL (0.55-1.3); MAGNESIUM 2.3 mg/dL (1.8-2.4)
[2020-01-25] MEDS ORDERED: POTASSIUM CHLORIDE TABS 20 MEQ TABLET.ER (FP) PO ONE (10:52)
[2020-01-25] MEDS ORDERED: LACTULOSE 20 GM/30 ML UDC (FOR ORAL USE ONLY) PO PRN (10:53)
[2020-01-26] MEDS ORDERED: LORazepam 0.5 MG TABLET PO ONE ×2 (05:00)
--- NOTE | 2020-01-26 08:20 | PN ---
Progress Note, Physician History of Present Illness: 39yo M with no PMHx was brought in by EMS due to a seizure-like episode. - Current Medication List Current Medications: Active Medications Acetaminophen (Tylenol -) 650 mg PO Q6H PRN PRN Reason: PAIN LEVEL 1-5 Last Admin: 01/25/20 10:15 Dose: 650 mg Documented by: Enoxaparin Sodium (Lovenox -) 40 mg SQ DAILY [facility] Last Admin: 01/25/20 10:19 Dose: 40 mg Documented by: Folic Acid (Folic Acid -) 1 mg PO DAILY [facility] Last Admin: 01/25/20 10:18 Dose: 1 mg Documented by: Lactulose (Cephulac (Oral Use)) 20 gm PO TID PRN PRN Reason: CONSTIPATION Levetiracetam (Keppra -) 500 mg PO BID [facility] Last Admin: 01/25/20 21:19 Dose: 500 mg Documented by: Multivitamins/Minerals/Vitamin C (Tab-A-Vit -) 1 tab PO DAILY [facility] Last Admin: 01/25/20 10:18 Dose: 1 tab Documented by: Thiamine HCl (Vitamin B1 -) 100 mg PO DAILY [facility] Last Admin: 01/25/20 10:18 Dose: 100 mg Documented by: - Objective Vital Signs: Vital Signs Temperature 98.6 F 01/26/20 05:00 Pulse Rate 82 01/26/20 05:00 Respiratory Rate 18 01/26/20 05:00 Blood Pressure 108/74 01/26/20 05:00 O2 Sat by Pulse Oximetry (%) 98 01/26/20 05:00 Labs: CBC, BMP 01/25/20 08:10 01/25/20 08:10 INR, PTT INR 1.05 (0.83-1.09) 01/24/20 08:00 Problem List - Problems (1) Prophylactic measure Code(s): Z29.9 - ENCOUNTER FOR PROPHYLACTIC MEASURES, UNSPECIFIED (2) Seizure-like activity Code(s): R56.9 - UNSPECIFIED CONVULSIONS (3) Alcohol abuse Code(s): F10.10 - ALCOHOL ABUSE, UNCOMPLICATED (4) Hypokalemia Code(s): E87.6 - HYPOKALEMIA (5) Transaminitis Code(s): R74.0 - NONSPEC ELEV OF LEVELS OF TRANSAMNS & LACTIC ACID DEHYDRGNSE (6) Hyperbilirubinemia Code(s): E80.6 - OTHER DISORDERS OF BILIRUBIN METABOLISM (7) Tongue laceration Code(s): S01.512A - LACERATION WITHOUT FOREIGN BODY OF ORAL CAVITY, INIT ENCNTR (8) Jaw pain Code(s): R68.84 - JAW PAIN
[2020-01-26 09:01] LABS: BASO % 0.5 % (0-2.0); EOS % 3.9 % (0-4.5); HEMATOCRIT 44.5 % (35.4-49); HEMOGLOBIN 15.5 GM/dL (11.7-16.9); LYMPH % 20.8 % (8-40); MCH 34.1 pg (25.7-33.7); MCHC 34.8 g/dl (32.0-35.9); MONO % 10.4 % (3.8-10.2); NEUT % 64.4 % (42.8-82.8); PLATELET COUNT 102 K/MM3 (134-434); RBC 4.53 M/mm3 (4.00-5.60); RDW 13.2 % (11.9-15.9); WHITE BLOOD COUNT 6.4 K/mm3 (4.0-10.0)
[2020-01-26 09:22] LABS: ALBUMIN 3.8 g/dl (3.4-5.0); BILIRUBIN,TOTAL 0.9 mg/dL (0.2-1); BLOOD UREA NITROGEN 10.5 mg/dL (7-18); CALCIUM 8.9 mg/dL (8.5-10.1); CREATININE 0.7 mg/dL (0.55-1.3); MAGNESIUM 2.4 mg/dL (1.8-2.4); POTASSIUM 4.1 mmol/L (3.5-5.1); TOT PROT 7.6 g/dl (6.4-8.2)
[2020-01-26 09:41] LABS: PLATELET ESTIMATE DECREASED
[2020-01-26] MEDS: ENOXAPARIN NA (PORCINE) 40 MG/0.4 ML DISP.SYRIN SQ SCH (10:09)
[2020-01-26] MEDS: FOLIC ACID 1 MG TABLET (FP) PO SCH (10:09)
[2020-01-26] MEDS: levETIRAcetam 500 MG TABLET (FP) PO SCH ×2 (10:09→21:54)
[2020-01-26] MEDS: MULTIVITAMINS (DAILY MVI) TABLET (FP) PO SCH (10:10)
[2020-01-26] MEDS: THIAMINE HCL 100 MG TABLET (FP) PO SCH (10:10)
--- NOTE | 2020-01-26 13:45 | PN ---
Progress Note (short form) - Note Progress Note: No new complaint no seizures the day afebrile no shortness of breath. Vital Signs Period Temp Pulse Resp BP Sys/Vo Pulse Ox Last 24 Hr 98 F-99.1 F 78-97 18-20 103-122/58-86 95-98 Patient is comfortable HEENT normal Neck supple no JVD Lungs clear no wheezing Abdomen nontender no organomegaly bowel sounds normal Extremities no edema no cyanosis normal pulses Neurologically he is alert awake oriented, nonfocal Skin no rash noted CBC, BMP 01/26/20 07:43 01/26/20 07:43 Laboratory Results - last 24 hr 01/26/20 01/26/20 07:43 07:43 WBC 6.4 RBC 4.53 Hgb 15.5 Hct 44.5 MCV 98.0 H MCH 34.1 H MCHC 34.8 RDW 13.2 Plt Count 102 L MPV 11.0 Absolute Neuts (auto) 4.1 Neutrophils % 64.4 Lymphocytes % 20.8 D Monocytes % 10.4 H Eosinophils % 3.9 Basophils % 0.5 Nucleated RBC % 0 Platelet Estimate Decreased Sodium 137 Potassium 4.1 Chloride 103 Carbon Dioxide 26 Anion Gap 8 BUN 10.5 Creatinine 0.7 Est GFR (CKD-EPI)AfAm 137.78 Est GFR (CKD-EPI)NonAf 118.88 Random Glucose 84 Calcium 8.9 Magnesium 2.4 Total Bilirubin 0.9 AST 254 H ALT 176 H Alkaline Phosphatase 92 Total Protein 7.6 Albumin 3.8 Assessment and plan Seizures/syncope Patient has no seizure at this time MRI brain is normal EEG is pending continue current medication follow-up by neurologist. He is on alcohol detox program Transaminases CT scan of the abdomen shows fatty infiltration possibly alcohol induced also will monitor Current Medications Generic Name Dose Route Start Last Admin Trade Name Freq PRN Reason Stop Dose Admin Acetaminophen 650 mg 01/23/20 18:32 01/25/20 10:15 Tylenol - PO 650 mg Q6H PRN Administration PAIN LEVEL 1-5 Enoxaparin Sodium 40 mg 01/23/20 10:00 01/26/20 10:09 Lovenox - SQ 40 mg DAILY [facility] Administration Folic Acid 1 mg 01/24/20 10:00 01/26/20 10:09 Folic Acid - PO 1 mg DAILY [facility] Administration Lactulose 20 gm 01/25/20 10:53 Cephulac (Oral Use) PO TID PRN CONSTIPATION Levetiracetam 500 mg 01/23/20 12:45 01/26/20 10:09 Keppra - PO 500 mg BID [facility] Administration Multivitamins/Minerals/Vitamin C 1 tab 01/24/20 10:00 01/26/20 10:10 Tab-A-Vit - PO 1 tab DAILY [facility] Administration Thiamine HCl 100 mg 01/24/20 10:00 01/26/20 10:10 Vitamin B1 - PO 100 mg DAILY [facility] Administration Visit type - Emergency Visit Emergency Visit: Yes ED Registration Date: 01/22/20 Care time: The patient presented to the Emergency Department on the above date and was hospitalized for further evaluation of their emergent condition. - New Patient This patient is new to me today: Yes Date on this admission: 01/26/20 - Critical Care Critical Care patient: No - Discharge Referral Referred to [facility] Med P.C.: No
[2020-01-27 08:53] LABS: BASO % 0.4 % (0-2.0); HEMATOCRIT 44.9 % (35.4-49); HEMOGLOBIN 15.3 GM/dL (11.7-16.9); LYMPH % 21.7 % (8-40); MCH 33.2 pg (25.7-33.7); MCHC 34.2 g/dl (32.0-35.9); MEAN CELL VOLUME 97.1 fl (80-96); MEAN PLT VOLUME 10.4 fl (7.5-11.1); MONO % 13.5 % (3.8-10.2); NEUT % 60.4 % (42.8-82.8); PLATELET COUNT 109 K/MM3 (134-434); RBC 4.62 M/mm3 (4.00-5.60); RDW 13.4 % (11.9-15.9); WHITE BLOOD COUNT 5.9 K/mm3 (4.0-10.0)
[2020-01-27 09:35] LABS: ALBUMIN 3.8 g/dl (3.4-5.0); BILIRUBIN,TOTAL 1.2 mg/dL (0.2-1); BLOOD UREA NITROGEN 10.8 mg/dL (7-18); CALCIUM 8.9 mg/dL (8.5-10.1); CREATININE 0.7 mg/dL (0.55-1.3); MAGNESIUM 2.5 mg/dL (1.8-2.4); POTASSIUM 4.2 mmol/L (3.5-5.1); TOT PROT 7.7 g/dl (6.4-8.2)
[2020-01-27] MEDS: ENOXAPARIN NA (PORCINE) 40 MG/0.4 ML DISP.SYRIN SQ SCH (10:17)
[2020-01-27] MEDS: levETIRAcetam 500 MG TABLET (FP) PO SCH (10:17)
[2020-01-27] MEDS: FOLIC ACID 1 MG TABLET (FP) PO SCH (10:17)
[2020-01-27] MEDS: THIAMINE HCL 100 MG TABLET (FP) PO SCH (10:18)
[2020-01-27] MEDS: MULTIVITAMINS (DAILY MVI) TABLET (FP) PO SCH (10:18)
--- NOTE | 2020-01-27 10:40 | PN ---
Progress Note (short form) - Note Progress Note: cc Second epiosde of seizure HPI 39 year old male no significant medical history. 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 He bit his tongue and his jaw and neck was jerking. He has similar episode four years ago and was not started on medication. Patient is still having headhace and feeling lethargic, His ct head is normal. Patient has been afebrile. -- no side effect, patient has no seizure, mri of brain was unremarkable. Patient is doing better no side effect of medicaiton. waiting for eeg and possible discharge NEUROLOGICAL EXAMINATION Alert oriented x 3, afebrile neck is supple vss eomi, pupils reactive face symmetrical moving all ext sensation is normal -- exam unchanged ct head is normal mri of brain is normal eeg is pending Assesment/PLAN Unprovoked second episode of seizure with tonic clonic activity and tongue bite.ct head and neuro exam is normal. Plan - mri of brain with and without contrast normal - eeg pending( can be discharged home , can be done outpatient ) - continue kepra 500 mg po bid -seizure precautions discussed with patient Thanking you so much Ham Naik MD
--- NOTE | 2020-01-27 12:45 | DS ---
Physical Exam: SUBJECTIVE: No events. No complaints. Pt nervous about having another seizure episode. OBJECTIVE: Vital Signs Period Temp Pulse Resp BP Sys/Vo Pulse Ox Last 24 Hr 97.8 F-98.9 F 78-93 14-20 105-124/62-79 96-99 PHYSICAL EXAM GENERAL: The patient is awake, alert, and fully oriented, in no acute distress. HEENT: Nc/AT, CRISTÓBAL, EOMI w/o nystagmus, no sclera icterus, MMM LUNGS: CTA bilaterally, no wheezes, no crackles, no accessory muscle use. HEART: RRR, S1, S2 without murmur ABDOMEN: Soft, Nt/ND, normoactive bowel sounds, no guarding, no rebound, no asterixis. EXTREMITIES: 2+ pulses, warm, well-perfused, no edema. NEUROLOGICAL: Nonfocal exam. Strength grossly 5/5, gait stable. Sensation intact grossly. SKIN: Warm, dry, no rashes or lesions noted. LABS Laboratory Results - last 24 hr 01/27/20 01/27/20 07:47 07:47 WBC 5.9 RBC 4.62 Hgb 15.3 Hct 44.9 MCV 97.1 H MCH 33.2 MCHC 34.2 RDW 13.4 Plt Count 109 L MPV 10.4 Absolute Neuts (auto) 3.6 Neutrophils % 60.4 Lymphocytes % 21.7 Monocytes % 13.5 H Eosinophils % 4.0 Basophils % 0.4 Nucleated RBC % 0 Sodium 137 Potassium 4.2 Chloride 102 Carbon Dioxide 28 Anion Gap 7 L BUN 10.8 Creatinine 0.7 Est GFR (CKD-EPI)AfAm 137.78 Est GFR (CKD-EPI)NonAf 118.88 Random Glucose 82 Calcium 8.9 Magnesium 2.5 H Total Bilirubin 1.2 H AST 268 H ALT 231 H Alkaline Phosphatase 93 Total Protein 7.7 Albumin 3.8 Laboratory Tests 01/23/20 05:44 Hep A IgM Ab Confirm Negative Hep Bs Antigen Negative Hep B Core IgM Ab Negative Hepatitis C Ab (EIA) 0.1 HOSPITAL COURSE: Date of Admission:01/22/20 Date of Discharge: 01/27/20 Pt admitted 01/22/2020 due to seizure-like activity. He has a history of excessive alcohol use and was placed on detox treatment. In addition he was seen by neurology who recommended AED therapy of Keppra 500mg BID. During his hospital course he did not have any other seizure-like activity while on the Keppra. Brain MRI was without abnormality and EEG was performed pending read, however it was recommended he can follow on outpatient basis. He does not wish to go to rehab or detoxification programs and would like to go home. He expresses concern about having another episode, however he understands if he adheres to his medications and stops drinking that likely they will be controlled. While here his hepatitis A and B serologies were negative representing no acute immunity. Pt is to have vaccination scheduling on outpatient basis. He is to see Dr. Gaona at the [facility] for establishing medical care. He is to have his LFTs trended. He will need to see Dr. Naik outpatient for EEG results, follow-up of his seizures, and management of his Keppra. Minutes to complete discharge: 33 Discharge Summary Problems reviewed: Yes Reason For Visit: SEIZURE-LIKE ACTIVITY Current Active Problems Alcohol abuse (Acute) Hyperbilirubinemia (Acute) Hypokalemia (Acute) Jaw pain (Acute) Prophylactic measure (Acute) Seizure-like activity (Acute) Suspected COVID-19 virus infection (Acute) Syncope (Acute) Tongue laceration (Acute) Transaminitis (Acute) Condition: Improved - Instructions Diet, Activity, Other Instructions: DISCHARGE YOUR VISIT You came to the hospital because you had seizure-like activity. You were given medications and will need to stop drinking alcohol as it is affecting your liver and health. You did not want to seek outpatient rehab. MEDICATIONS Please continue to take your home medications as prescribed. You were given Keppra 500mg TWICE daily to keep taking. It is extremely important to keep taking this medication or else you will likely have another seizure. DIET Continue your home diet ADDITIONAL CARE Please make an appointment to see Dr. Gaona in 1 week to establish a primary care doctor. You will need to see Dr. Naik within 1-2 weeks to help with your medications as well. ADDITIONAL INFORMATION Please call 911 or come directly to the emergency department if you experience unusual headache, vision change, shortness of breath, chest pain, numbness, tingling, loss of alertness/awareness, loss of function, unusual bleeding or any alarming symptoms. Thank you for allowing me to care for you. Referrals: Red Naik MD [Staff Physician] - (call for appointment for follow up on seizures) Tejas Gaona MD [Staff Physician] - 1 Week Disposition: HOME - Home Medications Comprehensive Discharge Medication List: Ambulatory Orders Fluticasone Propionate [Flonase Allergy Relief] 2 sprays NS DAILY #1 bottle 08/09/19 Folic Acid - 1 mg PO DAILY #30 tablet 01/24/20 Multivitamins [Multivit ([facility] Formulary)] 1 tab PO DAILY #30 tab 01/24/20 Thiamine HCl [Vitamin B1 -] 100 mg PO DAILY #30 tablet 01/24/20 levETIRAcetam [Keppra -] 500 mg PO BID #60 tablet 01/24/20 This patient is new to me today: Yes Date on this admission: 01/27/20 Emergency Visit: Yes ED Registration Date: 01/22/20 Care time: The patient presented to the Emergency Department on the above date and was hospitalized for further evaluation of their emergent condition. Critical Care patient: No - Discharge Referral Referred to [facility] Med [facility] No
[2020-01-27 14:14] VITALS: BP 115/76; PULSE 88; TEMP 98.2
== END 2020-01-27 17:44 | disposition home or self-care (01) | DRG 53 ==
LOC: JER 20:34 → JERBED 23:02 → J5S 01-23 18:14
PROVIDERS: ADMIT Internal Medicine; ATTEND Internal Medicine
DX: R56.9 Unspecified convulsions (principal); E87.1 Hypo-osmolality and hyponatremia; E83.39 Other disorders of phosphorus metabolism; F10.230 Alcohol dependence with withdrawal, uncomplicated; E87.6 Hypokalemia; R74.0 Nonspecific elevation of levels of transaminase and lactic acid dehydrogenase [LDH]; E80.6 Other disorders of bilirubin metabolism; S01.512A Laceration without foreign body of oral cavity, initial encounter; X58.XXXA Exposure to other specified factors, initial encounter; Y93.89 Activity, other specified; Y92.89 Other specified places as the place of occurrence of the external cause; Y99.8 Other external cause status; R68.84 Jaw pain; R55 Syncope and collapse
CPT/HCPCS: 36415; 70450-TC; 70553-TC; 71275-TC; 72125-TC; 74174-TC; 80053; 80074; 80307; 81003; 82140; 82550; 82553; 83690; 83735; 84100; 84146; 84443; 84484; 85025; 85379; 85610; 85730; 93005; 93010; 95816; 99285-25; Q9967; U0003